=== PATIENT | female | born 1950 | race Caucasian/White ===

== ENCOUNTER 2017-03-18 08:27 | Observation (INO) ==
--- NOTE | 2017-03-18 08:37 | Emergency Department Note ---
Disposition Clinical Impression: Neurosensory deficit Disposition: Admitted As Inpatient Condition: Fair Time of Disposition: 10:23 General Adult HPI - General Chief complaint: ED Neuro Symptoms/Deficit Stated complaint: facial numbness Time Seen by Provider: 03/18/17 08:35 Source: patient Limitations: no limitations Nursing Notes Reviewed: Yes Vital Signs Reviewed: Yes - History of Present Illness HPI Narrative: Mrs. Souza, a 67 year old female, presents from home by POV for evaluation over concerns of numbness to the right side of her face. Onset this morning at 3 AM. Patient notes her symptoms have been intermittent however, she is becoming decreased me concerned about them, they become more persistent. She delineates the numbness extending from the middle of her nose to behind her ear as well as extending from her forehead to below her chin. This includes the right side of her upper lip, right corner of her mouth, and right lower lip. She and her at bedside deny any facial droop, no slurring of speech, no difficulty swallowing or chewing, no difficulty walking. Patient denies any weakness or changes in vision. Patient recently had AC joint orthopedic surgery performed at this facility 3 days ago. Last oxycodone was 24 hours ago. Last ibuprofen was 12 hours ago. She is having no pain from her shoulder at this time. PMH: None. Medications: No daily chronic medications. Patient currently takes no anticoagulants or antiplatelets. ROS: Positive: Intermittent mild right-sided facial numbness and tingling. Negative: Fever, chills, nausea, vomiting, trauma, neck pain, headache, changes in vision, slurring of speech, difficulty finding her words, difficulty chewing or swallowing, slurring of speech, difficulty with ambulation, focal muscle weakness. Pain Scale: 0 - Related Data Home Medications Medication Instructions Recorded Confirmed Cyanocobalamin (Vitamin B-12) 1,000 mcg PO DAILY 03/15/17 03/18/17 [Vitamin B12] Ergocalciferol (VITAMIN D2) 50,000 unit PO QWEEK 03/15/17 03/18/17 [Vitamin D2] Docusate [Colace] 100 mg PO DAILY 03/18/17 03/18/17 Previous Rx's Medication Instructions Recorded Clindamycin [Cleocin] 150 mg PO Q6HR #7 capsule 03/15/17 Ibuprofen [Motrin] 600 mg PO Q8HR #20 tab 03/15/17 OxyCODONE Immed Rel [Roxicodone 5 5 mg PO Q4HR PRN #24 tablet 03/15/17 MG] Allergies Allergy/AdvReac Type Severity Reaction Status Date / Time budesonide Allergy Difficulty Verified 03/18/17 11:28 [From Rhinocort Allergy] Breathing All systems ED: reviewed and negative except as stated. Past Medical History - Past Medical History Medical history: Reports: glaucoma Psychiatric history: Reports: no psych history - Social History Smoking Status: Former smoker Smokeless Tobacco Status: No Alcohol use: Reports: none Drug use: Reports: none Physical Exam Vital Signs Reviewed General: Patient is alert, oriented, and in no acute distress. She is sitting completely in bed with her right arm appropriately slung and swathed. HEENT: No facial asymmetry. Head is normocephalic and atraumatic. PERRLA, EOMI. oral mucosa moist. Trachea midline. Cardiovascular: Heart regular rate and rhythm without clicks, rubs, gallops, or murmurs. No JVD. PMI nondisplaced. No pedal edema. Bilateral radial and posterior tibial pulses 2/4 equal. Respiratory: Symmetric chest rise with good respiratory effort. Bilateral breath sounds are clear without wheezing, crackles, or rhonchi. Abdomen: Bowel sounds present normoactive. Abdomen is soft, nondistended, and nontender. Musculoskeletal: Muscle strength 5/5 and symmetric bilaterally in upper and lower extremities. Neuro: Cranial nerves II through XII without deficit - specifically clarified with the patient multiple times that she had equal sensation while testing cranial nerve V distribution. Sensation light touch intact. GCS 15. No left upper extremity pronator drift. Bilateral lower extremity and left upper extremity-no limb drift. Psych: Patient's affect is appropriate for situation. - General Limitations: no limitations General appearance: alert, in no apparent distress Course Course Narrative: Patient presents for concern of right facial numbness. Onset upon awakening at 3 AM. It has been intermittent however has become more consistent as her concern for this numbness has increased. Intake vitals-she is hypertensive and tachycardic. Patient has no history of CVA, CAD, ACS, hypertension, coagulopathy. She is not on any current anticoagulant or antiplatelet. She has no neurologic deficits on my exam. I was very specific while testing sensation of her face and she denies any changes in sensation from right side to left side of her face. She has no history of hypertension. During our discussion, she notes that her blood pressure does rise that she becomes concerned or anxious and then lowers back to normal with resolution of these thoughts. She does feel concerned and anxious at this time. She has no formal diagnosis of anxiety and has no current everyday medications. CT has returned showing no masses or hemorrhage. My attending spoke with neurology recommended follow-up MRI and admission overnight for continued observation and examination. He recommends aspirin only after the MRI results show no risk of bleeding. I discussed with the patient and she agrees. Head CT 03/18/17 08:56 IMPRESSION: No acute intracranial process identified. If there is concern for acute ischemia, consider MRI for further evaluation. D/ / 03/18/2017 11:21:37 Pb Newberry MD / malinda Interpreting Provider: Pb Newberry MD Vital Signs Temperature 98.6 F 03/18/17 08:30 Pulse Rate 108 03/18/17 08:30 Respiratory Rate 16 03/18/17 08:30 Blood Pressure 184/86 03/18/17 08:30 O2 Sat by Pulse Oximetry 97 03/18/17 08:30 Temperature 98.6 F 03/18/17 08:30 Pulse Rate 89 03/18/17 11:00 Respiratory Rate 0 03/18/17 11:57 Blood Pressure 0/0 03/18/17 11:57 O2 Sat by Pulse Oximetry 98 03/18/17 10:31 Oxygen Delivery Oxygen Delivery Room Air Medical Decision Making - Lab Data Result diagrams: 03/18/17 09:04 03/18/17 09:04 Lab Results 03/18/17 03/18/17 03/18/17 Range/Units 09:04 09:04 09:04 WBC 9.3 (4.3-11.1) K/mcL RBC 4.45 (3.82-4.97) M/mcL Hgb 13.5 (11.5-15.4) g/dL Hct 41.8 (35.3-44.9) % MCV 93.9 (83.0-100.0) fL MCH 30.3 (28.0-33.3) pg MCHC 32.3 (31.6-35.5) g/dL RDW 12.3 (11.5-14.5) % Plt Count 269 (140-400) K/mcL MPV 11.4 (9.4-12.4) fL Immature Gran % 0.2 (0-4) % Seg Neutrophils % 84.8 % Lymphocytes % 8.5 % Monocytes % 5.2 % Eosinophils % 0.9 % Basophils % 0.4 % Neutrophils # 7.9 (1.6-8.9) K/mcL Lymphocytes # 0.8 (0.6-4.6) K/mcL Monocytes # 0.5 (0.0-1.3) K/mcL Eosinophils # 0.1 (0.0-0.6) K/mcL Basophils # 0.0 (0.0-0.2) K/mcL Sodium 140 (136-145) mEq/L Potassium 4.0 (3.5-4.5) mEq/L Chloride 105 (98-109) mEq/L Carbon Dioxide 26 (19-29) mEq/L BUN 13 (7-20) mg/dL Creatinine 0.82 (0.57-1.11) mg/dL Est GFR ( Amer) > 60 (> 60) Est GFR (Non-Af Amer) > 60 (> 60) BUN/Creatinine Ratio 16 (6-26) Glucose 113 H (70-99) mg/dL Calculated Osmolality 291 (280-300) Calcium 9.7 (8.6-10.8) mg/dL Phosphorus 2.8 (2.3-4.7) mg/dL Magnesium 2.2 (1.6-2.6) mg/dL TSH 0.526 (0.350-4.840) mcIU/mL
[2017-03-18 09:24] LABS: BUN/Creatinine Ratio 16 (6-26); Blood Urea Nitrogen 13 mg/dL (7-20); Calcium 9.7 mg/dL (8.6-10.8); Carbon Dioxide 26 mEq/L (19-29); Chloride 105 mEq/L (98-109); Glucose 113 mg/dL (70-99); Magnesium 2.2 mg/dL (1.6-2.6); Osmolality,Calculated 291 (280-300); Phosphorous 2.8 mg/dL (2.3-4.7); Sodium 140 mEq/L (136-145); eGFR For African Americans > 60 (> 60); eGFR For Non-African Americans > 60 (> 60)
--- NOTE | 2017-03-18 09:50 | Emergency Department Note ---
START Narrative - START START: I examined this patient and my medical decision-making was reviewed with the Resident Physician. I agree with the documented findings, disposition and treatment plan as described except to the extent set forth below. 67yo F here for right facial numbness involving most of right cheek, crack of mouth, tongue. no other focal motor deficits. no vision changes. will do ct and consult with Neurology. concerns for ischemic properties.
[2017-03-18 11:51] LABS: Basophils % 0.4 %; Eosinophils # 0.1 K/mcL (0.0-0.6); Eosinophils % 0.9 %; Hematocrit 41.8 % (35.3-44.9); Hemoglobin 13.5 g/dL (11.5-15.4); Immature Granulocytes % 0.2 % (0-4); Lymphocytes # 0.8 K/mcL (0.6-4.6); Lymphocytes % 8.5 %; Mean Corpuscular HGB Conc 32.3 g/dL (31.6-35.5); Mean Corpuscular Hemoglobin 30.3 pg (28.0-33.3); Mean Corpuscular Volume 93.9 fL (83.0-100.0); Mean Platelet Volume 11.4 fL (9.4-12.4); Monocytes # 0.5 K/mcL (0.0-1.3); Monocytes % 5.2 %; Neutrophils # 7.9 K/mcL (1.6-8.9); Platelet Count 269 K/mcL (140-400); Red Blood Count 4.45 M/mcL (3.82-4.97); Red Cell Distribution Width 12.3 % (11.5-14.5); Segmented Neutrophils % 84.8 %
[2017-03-18] MEDS ORDERED: Naloxone 0.4 MG/ML INJ IVP PRN (12:38)
[2017-03-18] MEDS ORDERED: Ibuprofen 400 MG TABLET PO PRN (13:21)
[2017-03-18] MEDS ORDERED: *HR* OxyCODONE Immed Rel 5 MG TABLET PO PRN ×2 (13:24→13:36)
--- NOTE | 2017-03-18 13:32 | Internal Med History&Physical ---
Date of Encounter: 03/18/17 Time of Encounter: 13:28 Assessment and Plan (1) Neurosensory deficit Current visit: Yes Status: Acute Patient presents with a acute neuro deficit of the right face complaining of right facial numbness since over [address] and MRI of the head unremarkable. Does not appear she has had an acute infarct. Over, at this time neurosensory deficits remain. However, should be noted that she recently had a right shoulder replacement 3 days ago, completed at [place] and this could be contributory. We will obtain Carotid Doppler to evaluate further cause of neurosensory deficit CBC and BMP in the morning if Symptoms worsen or persist will consider neuro consult Follow-up with orthopedist as an outpatient for further evaluation (2) HTN (hypertension) Current visit: Yes Status: Acute Hypertensive as of this admission. Patient denies any past medical history of prolonged hypertension. She admits that sometimes her blood pressure becomes slightly elevated with rest and relaxation is able to keep it under control. It was explained to her that we would wish to start antihypertensives during this admission to help him trouble hypertension, however she declines antihypertensives at this time. Qualifiers: Qualified Code(s): I10 - Essential (primary) hypertension (3) DVT prophylaxis Current visit: Yes Status: Acute Due to recent surgery, hospital stay, and prolonged bed rest the patient is at high risk for DVT. Start lovenox SC 40MG daily. Internal Medicine - H&P: HPI Chief complaint: new rt facial numbness Admitted From: Home Plans for Post Hospital Care: Home History of present illness: Ms. Souza is a 67 year old female with no past medical history. Presents to [facility] today with right-sided facial numbness described as intermittent but becoming more persistent, which began at 0300 this morning. She explains that the numbness extends from the mid nose down around behind the right ear up to the right forehead and right side of chin/jaw. The patient states"it feels like I would given a shot of Novocain". Additionally she has been hypertensive since admission. She denies any past medical history for hypertension and does not take any medications. As recently as 3 days ago she had a right shoulder replacement at [facility]. She mentions that since she had shoulder surgery she has had to sleep with her neck and opposition somewhat causing hyperextension may be contributory. CBC and metabolic panel are unremarkable. TSH 0.5-6, head CT negative for acute intracranial process, MRI negative for ischemia. She is being admitted to the [facility] for further workup and observation. Past Med Surg Social Fam HX - Past Medical History Medical history: glaucoma Psychiatric history: no psych history - Social History Smoking Status: Former smoker Smokeless Tobacco Status: No Alcohol use: none Drug use: none - Family History Mother Race: Living Status: Hx Family Cardiac Disorders: Yes (Coronary Artery disease) Father Race: Family Member Ethnicity: Non- Hx Family Cardiac Disorders: Yes (Coronary artery disease) Hx Family Endocrine Disorder: Yes (Diabetes mellitus) Internal Medicine - H&P: Meds Clindamycin [Cleocin] 150 mg PO Q6HR #7 capsule 03/15/17 [Rx] Cyanocobalamin (Vitamin B-12) [Vitamin B12] 1,000 mcg PO DAILY 03/15/17 [History ] Ergocalciferol (VITAMIN D2) [Vitamin D2] 50,000 unit PO QWEEK 03/15/17 [History] Ibuprofen [Motrin] 600 mg PO Q8HR #20 tab 03/15/17 [Rx] OxyCODONE Immed Rel [Roxicodone 5 MG] 5 mg PO Q4HR PRN #24 tablet 03/15/17 [Rx] Docusate [Colace] 100 mg PO DAILY 03/18/17 [History] 3 Allergy/AdvReac Type Severity Reaction Status Date / Time budesonide Allergy Difficulty Verified 03/18/17 11:28 [From Rhinocort Allergy] Breathing All Systems PM: A 10-system review of systems was performed and is negative for pertinent findings except as documented above in the HPI. - Constitutional Constitutional: no chills, no fever(s), no night sweats - EENT Eyes: no blurry vision, no change in vision, no discharge, no loss of peripheral vision, no loss of vision, no pain, no photophobia, no seeing flashes Ears: no ear discharge, no ear pain, no tinnitus Nose, mouth and throat: no dental pain, no dysphagia, no facial pain (Eyes facial pain, but does admit to new right-sided facial numbness without burning or tingling), no hoarseness, no lip swelling, no nasal discharge, no neck mass, no neck pain, no sore throat, no throat swelling, no tongue swelling - Cardiovascular Cardiovascular ROS IM: no chest pain, no diaphoresis, no dyspnea, no lightheadedness, no palpitations, no syncope - Respiratory Respiratory: no cough, no dyspnea, no wheezing, no excessive phlegm production - Gastrointestinal Gastrointestinal: no abdominal pain, no diarrhea, no hematemesis, no hematochezia, no melena, no nausea, no vomiting - Genitourinary Genitourinary: no change in urinary stream, no dysuria, no flank pain, no hematuria - Musculoskeletal Musculoskeletal ROS IM: no numbness, no tingling - Integumentary Integumentary IM: no rash, no unusual bruising - Neurological Neurological ROS: no confusion, no convulsions, no focal weakness, no numbness, no tingling, no tremor(s) - Hematologic/Lymphatic Hematologic/Lymphatic: no easy bruising - Constitutional Vitals: Temp Pulse Resp BP Pulse Ox 98.5 F 84 15 172/95 94 03/18/17 13:04 03/18/17 13:04 03/18/17 13:04 03/18/17 13:04 03/18/17 13:04 General appearance: Present: cooperative, A&O X 3, no acute distress, answers questions appropriately - Head Head exam: Present: atraumatic, normocephalic - Eye Eye exam: Present: EOMI, PERRL, conjuntiva pink, sclera anicteric Pupils: Present: PERRL - Neck Neck exam general surgery: Present: supple, trachea midline. Absent: lymphadenopathy - Respiratory Respiratory exam: Present: CTAB. Absent: accessory muscle use, rales, rhonchi, wheezes - Cardiovascular Cardiovascular exam: Present: RRR, +S1, +S2. Absent: diastolic murmur, gallop, rubs, systolic murmur - GI/Abdominal GI/Abdominal exam: Present: normal bowel sounds, soft, no peritoneal signs. Absent: distended, tenderness - Extremities Exam Extremities exam: Present: warm, radial pulses palpable and symmetrical. Absent : calf tenderness, cyanotic, pedal edema - Expanded Upper Extremities Exam Shoulder exam: Present: full ROM Upper Arm exam: Present: full ROM (Patient is a range of movement to right upper shoulder and right upper arm due to shoulder surgery 3 days ago, otherwise no deficits noted) - Neurological Exam Neurological exam: Present: CN II-XII intact, oriented X3, no focal deficits. Absent: pronater drift, facial droop, speech deficit - Expanded Neurological Exam Neurological exam expanded: Absent: ataxia, expressive aphasia, inattentive Patient oriented to: Present: person, place, time Cranial Nerves: EOM's intact PM: Normal, gag reflex PM: Normal, nystagmus PM: Normal, tongue deviation PM: Normal Cerebellar function: finger to nose: Normal, heel to fontana: Normal, Romberg: Normal Upper motor neuron: Babinski sign: Normal, Ha neglect: Normal, pronator drift : Normal, sensory extinction: Normal Sensory exam: LE 2 point discrimination: Normal, lower extremity light touch: Normal, lower extremity pin prick: Normal, lower extremity temperature: Normal, UE 2 point discrimination: Normal, upper extremity light touch: Normal, upper extremity pin prick: Normal, upper extremity temperature: Normal Neuro motor strength exam: LUE: 5, RUE: 5, LLE: 5, RLE: 5 Coma Scale Eye Opening: Spontaneous Coma Scale Motor Response: Obeys Commands Coma Scale Verbal Response: Oriented Coma Scale Total: 15 - Skin Skin exam: Present: dry, intact Internal Med - H&P Results - Labs CBC & Chem 7: 03/18/17 09:04 03/18/17 09:04 - Diagnostic Studies MRI - head Additional comments: Negative for acute intracranial process or ischemia. CT scan - head Additional comments: Negative for acute cranial abnormalities
[2017-03-18] MEDS: Cyanocobalamin (B-12) 1,000 MCG TABLET PO SCH (14:50)
[2017-03-18] MEDS: Lactobacillus 1 EACH CAP.SPRINK PO SCH (21:43)
[2017-03-19] MEDS ORDERED: *HR* Enoxaparin 40 MG/0.4 ML SYRINGE SQ SCH (06:00)
[2017-03-19 06:37] LABS: Basophils # 0.1 K/mcL (0.0-0.2); Basophils % 0.6 %; Eosinophils # 0.3 K/mcL (0.0-0.6); Eosinophils % 3.5 %; Hematocrit 38.8 % (35.3-44.9); Hemoglobin 12.4 g/dL (11.5-15.4); Immature Granulocytes % 0.2 % (0-4); Lymphocytes # 1.3 K/mcL (0.6-4.6); Lymphocytes % 14.4 %; Mean Corpuscular Volume 93.9 fL (83.0-100.0); Mean Platelet Volume 11.1 fL (9.4-12.4); Monocytes # 0.7 K/mcL (0.0-1.3); Neutrophils # 6.5 K/mcL (1.6-8.9); Platelet Count 247 K/mcL (140-400); Red Blood Count 4.13 M/mcL (3.82-4.97); Red Cell Distribution Width 12.3 % (11.5-14.5); Segmented Neutrophils % 73.3 %
[2017-03-19 06:54] LABS: BUN/Creatinine Ratio 19 (6-26); Blood Urea Nitrogen 16 mg/dL (7-20); Calcium 9.5 mg/dL (8.6-10.8); Carbon Dioxide 26 mEq/L (19-29); Chloride 106 mEq/L (98-109); Glucose 118 mg/dL (70-99); Osmolality,Calculated 290 (280-300); Sodium 139 mEq/L (136-145); eGFR For African Americans > 60 (> 60); eGFR For Non-African Americans > 60 (> 60)
[2017-03-19 07:15] VITALS: BP 169/92
[2017-03-19] MEDS: Lactobacillus 1 EACH CAP.SPRINK PO SCH (08:20)
[2017-03-19] MEDS: Cyanocobalamin (B-12) 1,000 MCG TABLET PO SCH (08:20)
--- NOTE | 2017-03-19 11:35 | Discharge Summary ---
Date of Encounter: 03/19/17 Time of Encounter: 09:30 - Discharge Diagnosis (1) Neurosensory deficit Priority: Primary Status: Acute Comments: Nearly resolved on day of discharge. Likely secondary to nerve block from surgery. Head CT negative. Brain MRI negative. Carotid duplex unremarkable. Symptoms nearly resolved prior to discharge. No dysphasia. No stridor. No drooling. Able to tolerate regular diet. Follow-up outpatient. (2) S/P rotator cuff repair Priority: Secondary Status: Chronic Comments: Patient had a rotator cuff repair on 03/15/[address] Perez. No reported complications. (3) HTN (hypertension) Priority: Secondary Status: Chronic Comments: Patient has a known history of intermittent hypertension. She states that they have tried blood pressure medication the past that made her have severe headaches and bottomed out her blood pressures. Patient refused antihypertensive medications while admitted. She stated that when she went home and was able to calm down, that her blood pressure returned to normal. She was instructed to check her blood pressure daily and keep a log for her primary care provider. (4) DVT prophylaxis Priority: Primary Status: Acute Comments: Subcutaneous Lovenox while admitted - Discharge Medications Home Medications: Clindamycin [Cleocin] 150 mg PO Q6HR #7 capsule 03/15/17 [Rx] Cyanocobalamin (Vitamin B-12) [Vitamin B12] 1,000 mcg PO DAILY 03/15/17 [History ] Ergocalciferol (VITAMIN D2) [Vitamin D2] 50,000 unit PO QWEEK 03/15/17 [History] Ibuprofen [Motrin] 600 mg PO Q8HR #20 tab 03/15/17 [Rx] OxyCODONE Immed Rel [Roxicodone 5 MG] 5 mg PO Q4HR PRN #24 tablet 03/15/17 [Rx] Docusate [Colace] 100 mg PO DAILY 03/18/17 [History] Allergies/Adverse Reactions: 3 Allergy/AdvReac Type Severity Reaction Status Date / Time budesonide Allergy Difficulty Verified 03/18/17 11:28 [From Rhinocort Allergy] Breathing Procedures/tests Complete & Pending: Procedures Performed prior 72 hours Category Date Time Status EV carotid duplex imaging BI Routine Y 03/18/17 13:27 Completed Date of admission: 03/18/17 11:51 Primary care physician: Khushboo Guan CNP Discharging clinician: Gabby Watts Anticipated date of discharge: 03/19/17 - Patient Status Disposition: Home, Self-Care Condition: Good Functional capacity at discharge: independent ambulation Overall status at discharge: patient is back to baseline - Discharge Instructions Follow Up With: Khushboo Guan CNP [Primary Care Provider] - Boogie Perez MD [Partnered Physician] - Additional Instructions: Follow-up with primary care provider within one to 2 weeks, follow-up with orthopedics as scheduled. Check blood pressure daily and keep a log for primary care provider. - Diet and Activity Activity: increase activity as tolerated, return to work once cleared by your PCP/specialist Diet: regular diet Hospital course: Ms. Souza is a 67 year old female with no past medical history. Patient presented to the emergency department chief complaint of right-sided facial numbness described as intermittent but had become more persistent which began early in the morning on the day of presentation. Patient stating the numbness extended from the middle part of her nose down to behind her right ear up to her right forehead and to the right side of her jaw. Patient is stating that she feels as if she has been given a shot of Novocain. Of note, patient is status post rotator cuff repair on 03/15/[address] Perez. Patient was hypertensive upon arrival however refused to take antihypertensive medications. Head CT negative. Brain MRI negative. Patient was admitted to the hospitalist service for further evaluation and management. Patient was admitted and observed overnight. Carotid duplex unremarkable. On day of discharge, her symptoms had nearly resolved. No focal neurological weakness is present on examination. No dysphasia, no stridor, no drooling. Thyroid functioning unremarkable. Patient was again mildly hypertensive while admitted that she stated that in the past antihypertensive medications have given her a severe headache and have bottomed out her blood pressure since she was not willing to take these medications while admitted. She stated that when she would return home, she knows that her blood pressure returned back to normal. She was instructed to check her blood pressure daily and keep a log for her primary care provider. Cause of patient's symptoms could be potentially related to nerve block from her shoulder surgery given that she stated that the numbness started in her right side of her neck and trended up. In any event, symptoms mostly resolved prior to discharge. She was discharged home in stable condition with close outpatient follow-up recommended. ITS Impressions Head CT 03/18/17 08:56 IMPRESSION: No acute intracranial process identified. If there is concern for acute ischemia, consider MRI for further evaluation. D/ /18/2017 11:21:37 Pb Newberry MD / malinda Interpreting Provider: Pb Newberry MD Brain MRI 03/18/17 10:14 IMPRESSION: 1. No acute infarct or acute intracranial process identified. 2. Mild chronic small vessel ischemic changes. D/ /18/2017 13:09:24 Pb Newberry MD / Kenia Angulo Interpreting Provider: Pb Newberry MD 03/18/17 14:56 - Vascular Preliminary by Yasir Garg Acct Num: [id number] : 1950 Patient Age: 67 Carotid U/S complete and appears normal with minimal plaque bilaterally - Time Spent with Patient Total time spent providing and/or coordinating discharge services: - Constitutional Vitals: Temp Pulse Resp BP Pulse Ox 98.7 F 83 15 169/92 94 03/19/17 07:11 03/19/17 07:11 03/19/17 07:11 03/19/17 07:11 03/19/17 07:11 General appearance: Present: cooperative, A&O X 3, pleasant, no acute distress, answers questions appropriately - Head Head exam: Present: atraumatic, normocephalic - Eye Eye exam: Present: PERRL, conjuntiva pink, sclera anicteric Pupils: Present: PERRL - Neck Neck exam general surgery: Present: supple, trachea midline. Absent: lymphadenopathy - Respiratory Respiratory exam: Present: CTAB. Absent: accessory muscle use, rales, respiratory distress, rhonchi, wheezes - Cardiovascular Cardiovascular exam: Present: RRR, +S1, +S2. Absent: diastolic murmur, gallop, rubs, systolic murmur - GI/Abdominal GI/Abdominal exam: Present: normal bowel sounds, soft, no peritoneal signs. Absent: distended, tenderness - Extremities Exam Extremities exam: Present: warm, radial pulses palpable and symmetrical. Absent : calf tenderness, cyanotic, pedal edema - Expanded Upper Extremities Exam Shoulder exam: Present: tenderness Vascular exam: Present: normal capillary refill. Absent: vascular compromise - Neurological Exam Neurological exam: Present: alert, CN II-XII intact, normal gait, oriented X3, no focal deficits, strengths equal and symetr throughout. Absent: pronater drift, facial droop, speech deficit - Skin Skin exam: Present: dry, intact, normal color, warm
--- NOTE | 2017-03-20 09:31 | Carotid Imaging Report ---
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 Findings Carotid Duplex: Fleming scale imaging combined with Doppler flow analysis suggests normal findings bilaterally. Right: The right proximal common carotid artery has a PSV of 86 cm/s and a EDV of 19 cm/s. The right mid common carotid artery has a PSV of 71 cm/s and a EDV of 20 cm/s. The right distal common carotid artery has a PSV of 78 cm/s and a EDV of 19 cm/s. The right bifurcation has a PSV of 57 cm/s and a EDV of 14 cm/s. The right proximal internal carotid artery has a PSV of 73 cm/s and a EDV of 22 cm/s. The right mid internal carotid artery has a PSV of 92 cm/s and a EDV of 26 cm/s. The right distal internal carotid artery has a PSV of 97 cm/s and a EDV of 31 cm/s. The right eca has a PSV of 101 cm/s and a EDV of 16 cm/s. The right vertebral artery has a PSV of 51 cm/s and a EDV of 12 cm/s. Left: The left proximal common carotid artery has a PSV of 82 cm/s and a EDV of 24 cm/s. The left mid common carotid artery has a PSV of 57 cm/s and a EDV of 15 cm/s. The left distal common carotid artery has a PSV of 54 cm/s and a EDV of 19 cm/s. The left bifurcation has a PSV of 45 cm/s and a EDV of 11 cm/s. The left proximal internal carotid artery has a PSV of 50 cm/s and a EDV of 15 cm/s. The left mid internal carotid artery has a PSV of 85 cm/s and a EDV of 26 cm/s. The left distal internal carotid artery has a PSV of 109 cm/s and a EDV of 35 cm/s. The left eca has a PSV of 99 cm/s and a EDV of 15 cm/s. The left vertebral artery has a PSV of 51 cm/s and a EDV of 13 cm/s. Prior Study: No prior study available for comparison. Carotid Results Right PSV EDV Assessment Proximal CCA 86 19 Mid CCA 71 20 Distal CCA 78 19 Bifurcation 57 14 Proximal ICA 73 22 Mid ICA 92 26 Distal ICA 97 31 ECA 101 16 Vertebral Artery 51 12 Left PSV EDV Assessment Proximal CCA 82 24 Mid CCA 57 15 Distal CCA 54 19 Bifurcation 45 11 Proximal ICA 50 15 Mid ICA 85 26 Distal ICA 109 35 ECA 99 15 Vertebral Artery 51 13 Ratio's Right ICA/CCA Ratio: 1.37 ICA/CCA Values: 97/71 Left ICA/CCA Ratio: 1.91 ICA/CCA Values: 109/57 Updated by Ralph Marques MD on 03/20/2017 9:22:39 AM electronically signed on 03/20/2017 9:23:12 AM with status of Final
== END 2017-03-19 12:10 | disposition home or self-care (01) ==
LOC: 3BNU 08:27 → EMEROO 08:27 → 3BNU 12:03
PROVIDERS: ADMIT Internal Medicine; ATTEND Family Medicine